=== PATIENT | male | born 1965 | race Caucasian/White ===

== ENCOUNTER 2024-09-05 05:10 | Inpatient (IN) | payer OTHER, SELFPAY ==
[2024-09-04 23:59] VITALS: BP 123/81
[2024-09-05] VITALS (45 sets, daily range): BP systolic 80–131; BP diastolic 54–89; BMI 29.2; BMI 30.4
--- NOTE | 2024-09-05 00:32 | ED.GENMED ---
History of Present Illness
General
Chief Complaint: Vomiting Blood
Source: patient
Exam Limitations: none
Time Seen by Provider: 09/05/24 00:23
History of Present Illness
History of Present Illness:
See MDM
Past History
Past History
ED Past Medical History: Other (Pulmonary embolism)
ED Past Surgical History: Appendectomy
Social History
Tobacco: Non-smoker
Alcohol: Occasional
Drug: None
Personal:
Living: with family
Employment: Employed
Phy Exam
Physical Exam
Physical Exam:
See MDM
Course
Orders/Labs/Results
Orders:
Orders
09/05/24 00:31
IV Insert/Care/Rem.- Treatment PRN
Pantoprazole 80 mg/100 ml Nss [Protonix] 80 mg in 100 ml IV NOW
Pantoprazole [Protonix IV] 80 mg IV NOW STA
09/05/24 00:32
CR Chest - 2 Views Urgent
Comment:
Reason For Exam: chest discomfort, bloody vomit
09/05/24 00:33
0.9% Sodium Chloride 1000 ml [Nss] 1,000 ml IV BOLUS
Morphine Sulfate 4 mg IV NOW STA
Ondansetron Injectable [Zofran] 4 mg IV NOW STA
09/05/24 00:34
Electrocardiogram (*1) Urgent
Reason for Study: Chest Pain
EKG- Treatment ONCE
09/05/24 00:53
Type+Screen Urgent
Complete Blood Count/With Diff Urgent
Comprehensive Metabolic Panel Urgent
PTT Urgent
Prothrombin Time Urgent
09/05/24 01:09
Consult Gastroenterology [GASTROINTESTINAL CONSULT] Urgent
Consulting Provider: Michelle Gonzalez
Was physician already notified: Yes
09/05/24 01:16
ABO2 Routine
BBK Wristband Number:
Associate notified that ABO2 has been ordered: [id number]
Date: 09/05/24
Time: 01:09
Horse Doctor ID: [id number]
09/05/24 01:47
HYDROmorphone [Dilaudid] 1 mg IV NOW STA
Abnormal Lab Results
09/05/24
00:53
WBC 14.8 H 10^3/uL
(4.8-10.8)
RBC 4.34 L 10^6/uL
(4.70-6.10)
Hct 38.1 L %
(39.0-52.0)
MCH 32.0 H pg
(27.0-31.0)
RDW 11.1 L %
(11.5-14.5)
Abs Immat Gran (auto) 0.1 H 10^3/uL
(0-0.05)
Absolute Neuts (auto) 12.8 H 10^3/uL
(1.4-6.5)
Absolute Lymphs (auto) 1.1 L 10^3/uL
(1.2-3.4)
Absolute Monos (auto) 0.8 H 10^3/uL
(0.1-0.6)
Neutrophils % 86.0 H %
(42.2-75.2)
Lymphocytes % 7.5 L %
(20.5-51.1)
BUN 26 H mg/dl
(9-20)
Glucose 154 H mg/dl
(70-99)
Total Bilirubin 1.7 H mg/dl
(0.2-1.3)
09/05/24 00:53
09/05/24 00:53
Vital Signs
Initial and Last Documented VS:
Initial Vital Signs
Temp Pulse Resp BP Pulse Ox
98.7 F 64 20 123/81 100
09/04/24 23:59 09/04/24 23:59 09/04/24 23:59 09/04/24 23:59 09/04/24 23:59
Last Documented Vital Signs
Temp Pulse Resp BP Pulse Ox
98.7 F 63 18 131/79 93
09/04/24 23:59 09/05/24 02:15 09/05/24 01:09 09/05/24 02:00 09/05/24 02:15
MDM/Problems Addressed
Differential Diagnosis Includes:
HPI and MDM Narrative:
59-year-old male presenting with bloody vomit. Patient was having a late night snack. He felt that it was stuck in his esophagus. Patient started gagging to get it out. Since then, patient has had intermittent bloody vomit. He states he no
longer thinks that the food is stuck but he still has pain in the middle chest. Patient denies being on blood thinners. He is tolerating secretions.
Patient and stated that he had a very large bloody vomit on arrival. Went into the room, patient had another episode of vomiting. Patient has about 200 cc of mostly blood in the vomit bag. states that this is actually less than the
prior.
Physical exam
General: Mildly uncomfortable
HEENT: protecting airway
Neck: appears supple
CV: No evidence of cyanosis
Resp: No accessory muscle use
Abd: Non-distended. Soft and nontender
Extremities: No deformities
Neuro: alert
Psych: Normal affect
Skin: Intact
Problems Addressed including Acute and Chronic Conditions affecting care:
1. Upper GI bleeding
Acuity: acute
Prognosis: unstable
Details: Given the active bleeding and family, GI made aware immediately. Started on PPI drip
Updates
1 AM Case discussed with GI. Plan is to perform EGD first thing in the morning since vitals are stable.
Differential Diagnosis (but not limited to): Laxmi-Garibay tear, peptic ulcer disease
Testing considered: CT chest
Drug therapy (if applicable): OTC meds, please see d/c instruction regarding Rx drugs
Amount and/or Complexity of Data Reviewed
Clinical info obtained from: Patient
External data reviewed: N/A
Labs I independently reviewed (but not limited to): Hemoglobin stable
Radiology: N/A
Pulse Ox: not hypoxic
EKG independently reviewed: Sinus bradycardia, left axis, no STEMI
Legal Records Clerk: Sinus bradycardia
Critical Care: The high probability of a clinically significant, sudden or life threatening deterioration of the gastrointestinal system(s) required my full and direct attention, intervention and personal management. The aggregate critical care time
was 35 minutes. This time is in addition to time spent performing reported procedures but includes the following:
[x] Data Review and interpretation
[x] Patient assessment and monitoring of vital signs
[x] Documentation
[x] Medication orders and management
Risk of Complication:
Social Determinants of health: Good social support
Discussed with other providers: Gastroenterology, hospitalist
Escalation of Care includes Admit/Obs: Given the significant amount of upper GI bleeding, will admit
Occasional wrong word or 'sound a like' substitutions may have occurred due to the inherent limitations of voice recognition software. Read the chart carefully and recognize, using context, where substitutions have occurred.
*Critical Care Note
Total Time (30-74mins, 75-104mins- exclusive of procedures): 35 min
ED Attending Note
-
Portions of this chart may have been created with voice recognition software.� Occasional wrong word or��sound alike� substitutions may have occurred due to the inherent limitations of voice recognition software.
Discharge Plan
Departure
Patient Disposition: Admit
Date of Disposition: 09/05/24
Time of Disposition: 02:38
Admit to: Telemetry
Presentation/result/management discussed w/ accepting MD/DO: Hospitalist
Discharge Problem:
UGIB (upper gastrointestinal bleed)
Prescriptions:
No Action
multivitamin 1 EACH tablet
1 ea PO DAILY
aspirin 81 MG tablet,chewable
81 mg PO DAILY
docosahexaenoic acid-epa 1 CAP capsule
1 cap PO DAILY
glucosamine neal 2KCl-chondroit [Glucosamine Sulf-Chondroitin] 1 EACH capsule
1 cap PO DAILY
Vitamin C
1 cap PO DAILY
acetaminophen 325 MG tablet
650 mg PO Q4HPRN PRN (Reason: mild pain) Qty: 1 0RF
ibuprofen 200 MG tablet
400 - 600 mg PO Q6HPRN PRN (Reason: moderate pain) Qty: 1 0RF
oxycodone 5 MG tablet
5 mg PO Q4HPRN PRN (Reason: breakthrough/severe pain) Qty: 15 0RF
rivaroxaban [Xarelto] 20 MG tablet
20 mg PO QPM Qty: 30 0RF
Rx Instructions:
Do NOT start until evening of 02/06/2021
Referrals:
Dav Mancilla, DO [Family Provider, Internal Medicine]
Interventions
Interventions:
*Risk Screen - Suicide Last Done: 09/04/24 23:59
*Neglect/Abuse Screening Last Done: 09/04/24 23:59
LF-Kaumbj-Wxrzpytvmy Assessment Last Done: 09/05/24 01:09
ED- Cardiac Assessment Last Done: 09/05/24 01:09
ED- Pulmonary Assessment Last Done: 09/05/24 01:09
Discharge Date and Time
Print Language: MALTESE
[2024-09-05 01:01] LABS: % Basophils 0.3 % (0-2); % Eosinophils 0.4 % (0-6); % Immature Granulocytes 0.4 % (0-0.5); % Lymphocytes 7.5 % (20.5-51.1); % Monocytes 5.4 % (1.7-9.3); Absolute Basophils 0.1 10^3/uL (0-0.2); Absolute Eosinophils 0.1 10^3/uL (0-0.7); Absolute Immature Granulocytes 0.1 10^3/uL (0-0.05); Absolute Lymphocytes 1.1 10^3/uL (1.2-3.4); Absolute Monocytes 0.8 10^3/uL (0.1-0.6); Absolute Neutrophils 12.8 10^3/uL (1.4-6.5); Hematocrit 38.1 % (39.0-52.0); Hemoglobin 13.9 g/dL (13.0-18.0); Mean Corp Hgb Conc. 36.5 g/dL (33.0-37.0); Mean Corpuscular Volume 87.8 fL (80.0-94.0); Mean Platelet Volume 9.3 fL (7.4-10.4); Nucleated Red Blood Cells % 0 % (-); Platelet Count 179 10^3/uL (130-400); Red Blood Cell Count 4.34 10^6/uL (4.70-6.10); Red Cell Dist. Width 11.1 % (11.5-14.5); White Blood Cell Count 14.8 10^3/uL (4.8-10.8)
[2024-09-05] MEDS: MORPHINE SULFATE 4 MG IV (01:01)
[2024-09-05] MEDS: NSS 1000 IV (01:01)
[2024-09-05] MEDS: PROTONIX IV 80 MG IV (01:02)
[2024-09-05] MEDS: ZOFRAN 4 MG IV (01:02)
[2024-09-05] MEDS: PROTONIX 100 IV ×3 (01:05→20:32)
[2024-09-05 01:17] LABS: APTT 27.2 Sec (23.4-35.0); INR 1.09; PT 14.4 Sec (11.4-14.6)
[2024-09-05 01:18] LABS: ALT (SGPT) 45 U/L (0-50); AST (SGOT) 39 U/L (17-59); Albumin 4.5 g/dl (3.5-5.0); Alkaline Phosphatase 55 U/L (38-126); Blood Urea Nitrogen 26 mg/dl (9-20); Calcium 9.2 mg/dl (8.4-10.2); Carbon Dioxide 28 mmol/L (22-30); Chloride 105 mmol/L (98-107); Estimated Creatinine Clearance 75 ml/min; Glucose 154 mg/dl (70-99); Potassium 3.8 mmol/L (3.5-5.1); Sodium 139 mmol/L (135-145); Total Bilirubin 1.7 mg/dl (0.2-1.3); Total Protein 6.6 g/dl (6.3-8.2); eGFR > 60.00
[2024-09-05] MEDS: DILAUDID 1 MG IV (01:52)
--- NOTE | 2024-09-05 04:58 | HPS.HSE ---
Family Physician
-
Family Physician: Dav Mancilla
Chief Complaint
-
Hematemesis
History of Present Illness
Patient is a 59y M with PMH significant for ASCVD and prior DVT / PE who presents to ED complaining of hematemesis. Patient states that he had a cardiac CT done earlier today. He felt well after this. He had a snack of rice / protein shake
this afternoon and felt that it 'got stuck'. He states that he coughed / choked a bit and then threw up some of the contents. He had a few episodes of retching / emesis at that time. He felt OK after this as well. He went to the movies with
family and began to feel lightheaded and diaphoretic. He went to the bathroom and had emesis of a large amount of bright red blood x 2 episodes.
Patient returned home, but had a 3rd episode of hematemesis at home.
He then presented to the ED for further evaluation. Patient had another episode en route to the ED.
He had a single episode here amounting to 200cc of bright red blood. He has not had any emesis since that time (following Zofran).
Medical History
Past Medical History
Past Medical History: Reports Other
Additional Past Medical History:
Coronary Disease (dx by Cardiac CT)
DVT / PE (multiple episodes - all post-surgical)
Past Surgical History: Reports Other
Additional Past Surgical History:
Right Knee Arthroscopy
Appendectomy
Cholecystectomy
Social History
Tobacco: Non-smoker
Alcohol: None
Drug: None
Family History
Family History: Not pertinent
Allergies / Home Medications
Allergies reflects when Allergies were last updated in [employer].
Home Medications with original date entered in [employer]
Allergy/Medication List:
Allergies
Allergy/AdvReac Type Severity Reaction Status Date / Time
No Known Allergies Allergy Verified 09/04/24 23:59
Home Medications
aspirin 81 mg chewable tablet 81 mg PO DAILY 01/21/21
atorvastatin 40 mg tablet 40 mg PO HS 09/05/24
coenzyme Q10 100 mg capsule (CoQ-10) 100 mg PO DAILY 09/05/24
omega 6-qak-bwm-fish oil 1,000 mg (120 mg-180 mg) capsule (Fish Oil) 1 cap PO BID 09/05/24
psyllium husk 3.4 gram/5.4 gram oral powder (Metamucil) 1 tbsp PO DAILY 09/05/24
Review of Systems
-
History Source: Patient
A 12 point ROS was completed and negative except as noted: Yes
Constitutional: Reports Fatigue; Denies Fever or Chills
EENT: Denies Sore Throat
Respiratory: Denies Cough or Trouble Breathing
Cardiac: Reports Chest Pain
Abdomen/GI: Reports Nausea and Vomiting (bloody emesis.); Denies Abdominal Pain
: Denies Dysuria or Frequency
Musculoskeletal: Denies Joint Pain or Edema
Neurological: Reports Dizzy; Denies Headache
Psych: Denies Depression or Anxiety
Physical Exam
Vital Signs
Vital Signs
Temp Pulse Resp BP Pulse Ox
98.7 F 64 16 116/72 97
09/04/24 23:59 09/05/24 04:25 09/05/24 04:25 09/05/24 04:25 09/05/24 04:25
Physical Exam
General: Other (59y M in no acute distress.)
HEENT: Moist mucous membranes and PERRLA
Respiratory: Clear; No Wheezes, Rales or Rhonchi
Cardiac: S1/S2 and Regular Rhythm; No Murmur
GI: Soft, Non Tender, Non Distended and Normal Bowel Sounds
Musculoskeletal: No Clubbing and No Cyanosis
Neuro: AO x 3
Laboratory Results
-
09/05/24 00:53
09/05/24 00:53
Laboratory Results
PT 14.4 Sec (11.4-14.6) 09/05/24 00:53
INR 1.09 09/05/24 00:53
APTT 27.2 Sec (23.4-35.0) 09/05/24 00:53
Total Bilirubin 1.7 mg/dl (0.2-1.3) H 09/05/24 00:53
AST 39 U/L (17-59) 09/05/24 00:53
ALT 45 U/L (0-50) 09/05/24 00:53
Alkaline Phosphatase 55 U/L (38-126) 09/05/24 00:53
Impression/Plan
-
A/P: Patient is a 59y M with PMH significant for CAD and VTE who presents to ED complaining of hematemesis.
Hematemesis
- Admit for further evaluation and treatment.
- Symptoms preceded by coughing / choking episode and few episodes of emesis at that time.
- ? Laxmi Garibay / mucosal injury due to choking.
- Continue supportive care with IV PPI infusion, IVFs, antiemetics and pain control.
- GI consulted for probable endoscopic examination.
- Follow H&H and transfuse if needed.
- Follow for any further episodes of hematemesis.
ASCVD
- Diagnosed by cardiac CT. No prior TN, stents, etc.
- Hold meds including ASA acutely.
History of DVT / PE
DVT Prophylaxis
- Previously on Xarelto - but stopped this some time ago and now on ASA alone.
- SCDs for prophylaxis for now.
Code Status: Full
[2024-09-05] MEDS: LR 1000 IV ×4 (05:41→23:45)
[2024-09-05 06:07] LABS: Hematocrit 34.2 % (39.0-52.0); Hemoglobin 12.6 g/dL (13.0-18.0)
[2024-09-05 06:26] LABS: Blood Urea Nitrogen 23 mg/dl (9-20); Calcium 8.6 mg/dl (8.4-10.2); Carbon Dioxide 24 mmol/L (22-30); Chloride 108 mmol/L (98-107); Estimated Creatinine Clearance 92 ml/min; Glucose 140 mg/dl (70-99); Potassium 4.7 mmol/L (3.5-5.1); Sodium 137 mmol/L (135-145); eGFR > 60.00
--- NOTE | 2024-09-05 06:47 | CON.GI ---
Addendum entered and electronically signed by Samantha Dougherty MD 09/05/24 09:31:
I saw and examined the patient.
The BANKRUPTCY PARALEGAL's note was reviewed and I agree with the note.
Comment: This is a 59-year-old male with past medical history as listed below who has been taking aspirin 81 mg twice daily who also has been having intermittent episodes of dysphagia to some solids for the past 2 to 3 years yesterday had eaten
salmon and rice and after he ate the rice he felt that it was stuck and had violent vomiting few episodes after that he vomited a large amount of blood and came into the emergency room and had another episode of suzanne hematemesis about 200 mL in the
ER. Hemoglobin on admission though was stable. After those 4 episodes he has not had any further episodes of vomiting or hematemesis. He currently denies any chest pain or abdominal pain. He had his last colonoscopy in 2013 which showed
diverticulosis never had an endoscopy before. He also denies any symptoms of acid reflux.
Assessment and plan dysphagia with food bolus impaction yesterday after he ate dinner felt that rice was stuck and then had multiple episodes of vomiting violently and then had hematemesis most likely has esophageal tear/Laxmi-Garibay tear.
Currently denies any abdominal pain no chest pain. Hemoglobin also remained stable. Will schedule him for urgent endoscopy. Continue Protonix drip. He also has been having intermittent episodes of dysphagia prior to this which could be related
to possible Schatzki's ring less likely peptic stricture since he has no symptoms of reflux less likely neoplasm. Will need an eventual repeat endoscopy for dilatation if he does have evidence of a ring or stricture. hold ASA.
Original Note:
Consultation
-
Date/Time Consultation Requested: 09/05/240
Date/Time Consultation Performed: 09/05/24 0645
Requesting Provider: Sam Ribera DO
Performing Provider: ASHIA Ambrocio, Samantha Dougherty MD
Reason for Consultation: GI bleed
Medical History
Chief Complaint / HPI
Chief Complaint: vomiting blood
History of Present Illness:
Pt is a 59yo with hx ASCVD with medical management, prior DVT/PE on ASA not on anticoagulation, appe, cortney, knee surgery with onset of dysphagia with retching then hematemesis and vomited about 200ml of suzanne blood in ER. Labs on admission with
WBC 14.8, hbg 13.9, Platelets 179 with normal INR.
In review with patient noted with dysphagia with solids over last few months. This episode was with rice after he completed follow up cardiac MRI for routine health testing. He admits to No hx EGD. Pt denies odynophagia, Wt loss, GERD,
abdominal pain, diarrhea, constipation, blood or black in stools. Hx colonoscopy 2013 with diverticulosis and due for repeat now.
Past Medical History
Past Medical History: Other (PE/DVT, ASCVD, diverticulosis )
Past Surgical History: Appendectomy, Cholecystectomy, Orthopedic (knee arthroscopy ) and Tonsilectomy
Social History
Tobacco: Non-Smoker
Alcohol: None
Drug: None
Personal:
Living: With Family
Employment: Employed
Family History
Family History: Other (daughter, niece and sister with IBS)
Allergies / Home Medications
Allergy/AdvReac Type Severity Reaction Status Date / Time
No Known Allergies Allergy Verified 09/04/24 23:59
�Medication �Instructions �Recorded
aspirin 81 mg chewable tablet 81 mg PO DAILY 01/21/21
atorvastatin 40 mg tablet 40 mg PO HS 09/05/24
coenzyme Q10 100 mg capsule 100 mg PO DAILY 09/05/24
(CoQ-10)
omega 2-cib-iaa-fish oil 1,000 mg 1 cap PO BID 09/05/24
(120 mg-180 mg) capsule (Fish Oil)
psyllium husk 3.4 gram/5.4 gram 1 tbsp PO DAILY 09/05/24
oral powder (Metamucil)
Review of Systems
-
History Source: Patient
Constitutional: Reports No Symptoms
EENT: Reports No Symptoms
Respiratory: Reports No Symptoms
Cardiac: Reports No Symptoms
Abdomen/GI: Reports Nausea, Vomiting (with hematemesis ) and Other (dysphagia with solids )
: Reports No Symptoms
Musculoskeletal: Reports No Symptoms
Skin: Reports No Symptoms
Neurological: Reports No Symptoms
Endocrine: Reports No Symptoms
Hematologic/Lymphatic: Reports Bleeding
Vital Signs
Temp Pulse Resp BP Pulse Ox
98.3 F 64 16 112/68 97
09/05/24 06:39 09/05/24 06:01 09/05/24 06:01 09/05/24 06:01 09/05/24 06:01
Physical Exam
Exam
General: Well Developed, Well Nourished and No Apparent Distress
HEENT: Normocephalic and Anicteric
Respiratory: Clear
Cardiac: Regular Rhythm
GI: Soft, Non Tender and Non Distended
Musculoskeletal: No Clubbing and No Cyanosis
Skin: Warm and Dry
Neuro: Awake, Alert and AO x 3
Psych: Calm
Results
WBC 14.8 10^3/uL (4.8-10.8) H 09/05/24 00:53
Hgb 12.6 g/dL (13.0-18.0) L 09/05/24 05:43
Hct 34.2 % (39.0-52.0) L 09/05/24 05:43
MCV 87.8 fL (80.0-94.0) 09/05/24 00:53
Plt Count 179 10^3/uL (130-400) 09/05/24 00:53
Absolute Neuts (auto) 12.8 10^3/uL (1.4-6.5) H 09/05/24 00:53
PT 14.4 Sec (11.4-14.6) 09/05/24 00:53
INR 1.09 09/05/24 00:53
APTT 27.2 Sec (23.4-35.0) 09/05/24 00:53
Sodium 137 mmol/L (135-145) 09/05/24 05:43
Potassium 4.7 mmol/L (3.5-5.1) 09/05/24 05:43
Chloride 108 mmol/L (98-107) H 09/05/24 05:43
Carbon Dioxide 24 mmol/L (22-30) 09/05/24 05:43
BUN 23 mg/dl (9-20) H 09/05/24 05:43
Creatinine 0.9 mg/dL (0.7-1.3) 09/05/24 05:43
Calcium 8.6 mg/dl (8.4-10.2) 09/05/24 05:43
Total Bilirubin 1.7 mg/dl (0.2-1.3) H 09/05/24 00:53
AST 39 U/L (17-59) 09/05/24 00:53
ALT 45 U/L (0-50) 09/05/24 00:53
Alkaline Phosphatase 55 U/L (38-126) 09/05/24 00:53
Diagnostic Image Results:
Prior GI Procedures:
EGD: none
Colonoscopy: 2013 good prep to cecum diverticulosis repeat 10 years
Assessment / Plan
-
Pt is a 59yo with hx ASCVD with medical management, prior DVT/PE on ASA not on anticoagulation, appe, cortney, knee surgery with onset of dysphagia after eating rice with retching then hematemesis and vomited about 200ml of suzanne blood in ER. Pt
states hx dysphagia intermittently last few months. Labs on admission with WBC 14.8, hbg 13.9, Platelets 179 with normal INR. No hx ETOH use.
-dysphagia last few months
-hematemesis after retching
-mild leukocytosis on admission
-ASCVD on daily ASA
other med problems:
-diverticulosis
-DVT/PE
-appe
-cortney
knee surgery
PLAN:
etiology of hematemesis related to MW tear vs other
dsyphagia related to stricture, ring, esophageal dysmotility vs other
plan for EGD today
currently on PPI gtt - t/c transition after EGD completed
trend hbg
NPO - advancement pending EGD results
will need follow up for colonoscopy as last 2013
-
-
Thank you for consultation and allowing me to participate in the patient's care. Please call the roofing subcontractor GI physician during the after hours with any questions or concerns.
--- NOTE | 2024-09-05 07:15 | PTCARENOTE ---
Patient AOx3. NSR with first degree on monitor. VSS. IVF running per order. Assist x1 when OOB. Call tate within reach, bed in lowest position, and bed of wheels locked.
--- NOTE | 2024-09-05 07:16 | PTCARENOTE ---
Admitted pt to floor. aaox3, pleasant. C/o pain in esophagus. No episodes of BRB emesis. VSS. NSR. Walking to BR, no dizziness. Will monitor.
--- NOTE | 2024-09-05 07:43 | PTCARENOTE ---
Patient transferred to GI lab via stretcher by patient transport. Verbal report given to GI casting house laborer. JANICE. IVF infusing per order. Care ongoing.
[2024-09-05 09:30] LABS: Glucose - Point of Care 151 mg/dl (70-99)
--- NOTE | 2024-09-05 09:30 | PTCARENOTE ---
Of note- any vital signs downloaded prior to 919 are from the previous unit
--- NOTE | 2024-09-05 09:33 | W.PN.HOSP.TC ---
Today's Communication/Plan
-
PPI Gtt
Vent
Assessment / Plan
Assessment / Plan
59-year-old male with upper GI bleed-vomiting blood. He ate rice and protein shake he felt it got stuck if you episodes of retching. Later on felt lightheaded and diaphoretic and had 3 episodes of hematemesis. Patient went for endoscopy where he
was found to have a 6 cm mucosal tear and bleeding. He was treated with bipolar cautery hemostatic spray. Patient was intubated for airway protection
EKG-sinus bradycardia with first degree block left axis deviation, incomplete right bundle branch block
Seen and evaluated the patient in the ICU
Patient intubated and sedated with a bolus of propofol
Cardiovascular system S1-S2 appreciated
Chest anteriorly clear to auscultation
Abdomen soft and nontender bowel sounds appreciated
No pedal edema
# Hematemesis -upper GI bleed
Probably exacerbated by aspirin
Dysphagia for the past few months
EGD 09/06/2023-large linear sick centimeter mucosal tear bleeding and with a large adherent clot which was removed. This was injected and treated with bipolar cautery and hemostatic spray. Also had hiatal hernia and low-grade narrowing of the
Schatzki's ring. Blood clots in the gastric fundus.
Patient was intubated for airway protection and to avoid nausea and retching to help heal the esophageal tear. No concern for aspiration per discussion with anesthesia
Continue PPI drip
N.p.o. with IV fluids
Follow hemoglobin
GI consulted and following as above
# Intubated for airway protection-ventilator management per broaching machine operator
# Mild leukocytosis-likely reactive. Follow
# ASCVD diagnosed by cardiac CT. No history of [place]. Hold aspirin and statin
# Hyperlipidemia-hold statin
# History of DVT and PE-or postsurgical. Was on Xarelto in the past
# Diverticulosis
# DVT prophylaxis-SCDs now and start Lovenox prophylaxis as soon as possible and cleared by GI
# Full code
Discussed with ICU team at bedside
Total Critical Care Time 32 minutes. I was immediately available to the patient and staff. I personally examined, reviewed labs, diagnostic images/reports, interpretations, treatment plans, discussed patient care with other providers , entered
orders as appropriate and documented the medical record.
Left message for
Part of this note was created using voice recognition system. Occasional wrong word or��sound alike� substitutions may have inadvertently occurred due to the inherent limitations of voice recognition software. If noted kindly bring it to my
attention for correction.
Anticipated Discharge: > 48 hours
Subjective/Interval History
-
Date of Service: September 05, 2024
Objective Data
-
Labs:
Laboratory Results
09/05/24 09/05/24 09/05/24
00:53 05:43 11:22
WBC 14.8 H
Hgb 13.9 12.6 L Pending
Hct 38.1 L 34.2 L Pending
Plt Count 179
PT 14.4
INR 1.09
APTT 27.2
Sodium 139 137
Potassium 3.8 4.7
Chloride 105 108 H
Carbon Dioxide 28 24
BUN 26 H 23 H
Creatinine 1.1 0.9
Glucose 154 H 140 H
Calcium 9.2 8.6
Total Bilirubin 1.7 H
AST 39
ALT 45
Alkaline Phosphatase 55
09/05/24 09/05/24
17:22 23:22
WBC
Hgb Pending Pending
Hct Pending Pending
Plt Count
PT
INR
APTT
Sodium
Potassium
Chloride
Carbon Dioxide
BUN
Creatinine
Glucose
Calcium
Total Bilirubin
AST
ALT
Alkaline Phosphatase
Vital Signs:
Vital Signs
Temp Pulse Resp BP Pulse Ox
99.4 F 64 16 112/68 97
09/05/24 09:32 09/05/24 06:01 09/05/24 06:01 09/05/24 06:01 09/05/24 06:01
[2024-09-05] MEDS: DIPRIVAN 100 IV ×3 (09:49→23:26)
[2024-09-05] MEDS: SUBLIMAZE 50 MCG IV ×5 (10:20→21:42)
--- NOTE | 2024-09-05 10:30 | PTCARENOTE ---
Rec'd pt from GI lab at 0925 via stretcher with nursing and INSULATION BLANKET MAKER with pt. Rec'd pt sedated and intubated. Once some of the sedation for the procedure wore off pt more wakeful-nodding head and following some basic commands. MAE. DE JESUS at 2mm. Nods
head no to having pain. Pt placed on Diprivan at 0950 at 15 mcg to keep restful while intubated. Skin is pink wm and dry. Respirs are intact on the vent. #8 Ett retaped at the 24 cm k[place] center of the mouth. CXRay obtained. Vent settings AC 16, tv
500, peep 5 Fio2 50%- sats are 97%. Mostly staying controlled at 16 but will occasionally take a few breaths above. Denies shortness of breath. BS are overall clear. Coughing an intermittent moist cough for clear sl bloody tinged secretions.
Medicated at 1020 with Fentanyl 50 mcg for some coughing. Monitor SR with 1st av block MA . 25-.26. + pulses. No edema. VS as documented. Pt initally hypotensive in the 80's syst. when first arrived to the ICU but given Hong by Anesthesia and
currently BP has improved and is tolerating the Propophol. Abd is sl distended and round with hypoactive BS. Does have some burping. Nods head no to having nausea. Has not voided yet. #20 protective placed R hand and Propophol currently at 15 mcg
via R hand IV site. IV Protonix infusing via L AC IV and LR infusing at 150 ml/hr via R AC. All sites wnl. Complete CHG bath given. Mouth care given. Repositioned.
[2024-09-05 10:33] LABS: B.E. 1.5 mmol/L; HCO3 26.6 mmol/L (21-28); O2 Saturation % 99.8 % (94-98); PCO2 43 mmHg (35-48); PO2 127 mmHg (83-108)
--- NOTE | 2024-09-05 10:42 | PTCARENOTE ---
GI laborer [employer] called and informed this RN that patient is intubated post endoscopy and will be transferred to ICU. Susy CARPET TECHNICIAN stated that she received report from GI laborer [employer]. Patient belongings transferred to ICU.
[2024-09-05 11:47] LABS: Hematocrit 34.2 % (39.0-52.0); Hemoglobin 12.3 g/dL (13.0-18.0)
--- NOTE | 2024-09-05 12:40 | PTCARENOTE ---
Remains resting on 20 mcg of Propophol. On that dose pt seems comfortable. Dozing unless disturbed. Denies pain and did not want anything for pain. Giving the thumbs up that he is comfortable. Skin is wm and dry. Tolerating 40% Fio2 with sats of
98%. Occasional cough that is not sustained. Suctioned for small amt of clear sl bloody tinged secretions. VS as documented. Abd is round and soft. Passing large amts of flatus. Has denied the need to void when asked. Bladder scanned at 1230 for 529
mls of urine. IV's continue to infuse as ordered. Pts at the bedside and both pt and updated.
--- NOTE | 2024-09-05 13:45 | PTCARENOTE ---
Pt is overall restful but easily wakeful. Writing notes and gesturing to communicate. Medicated with Fentanyl 50 mcg IV in anticipation of st. cathing pt as he could not void. However just prior to st cath pt was able to void 300 mls of urine.
-mostly in the urinal but some on the pad. #30 condom cath placed on pt as he is restrained. Rebladder scanned and post void residual is 578- pt wants to wait to see if he can void more. Has been cooperative. Denies discomfort. at the bedside.
Passing flatus.
--- NOTE | 2024-09-05 14:00 | CON.INTV ---
Consultation
Consultation Request
Date/Time Consultation Requested: 09/05/2024
Date/Time Consultation Performed: 09/05/2024
Requesting Provider: Breana De La Cruz
Performing Provider: Tess Coello
Reason for Consultation: GI Bleed
Medical History
-
Chief Complaint: Hematemesis
History of Present Illness:
Patient is currently intubated and sedated, unable to provide any history. Information mostly obtained from review of records and discussion with other healthcare providers. Reportedly patient is a 59-year-old gentleman with history of DVT and PE
who presents through the emergency room with hematemesis. Patient reportedly had some rice and protein shake and felt like as if it was stuck and he subsequently had cough and threw up some of the contents. He had additional episodes of retching
and emesis following that. A while later patient felt lightheaded as well as diaphoretic. He subsequently had a large amount of bright red blood x 2 episode. He had another episode once back at home and then decided to present to the emergency
room. In view of multiple episodes, he was admitted to the hospital and had an upper endoscopy performed today. Post endoscopy he arrives to ICU intubated, mechanically ventilated and sedated. Track Template Maker consultation was requested for further
input.
Past Medical History
Past Medical History: Reports Other
Additional Past Medical History:
Coronary Disease (dx by Cardiac CT)
DVT / PE (multiple episodes - all post-surgical)
Past Surgical History: Reports Other
Additional Past Surgical History:
Right Knee Arthroscopy
Appendectomy
Cholecystectomy
Social History
Tobacco: Non-smoker
Alcohol: None
Drug: None
Family History
Family History: Not pertinent
Allergies / Home Medications
Allergies / Home Medications
Allergies
Allergy/AdvReac Type Severity Reaction Status Date / Time
No Known Allergies Allergy Verified 09/04/24 23:59
Home Medications
�Medication �Instructions �Recorded �Confirmed �Last Taken �Type
aspirin 81 mg chewable tablet 81 mg PO DAILY 01/21/21 09/05/24 01/30/21 History
atorvastatin 40 mg tablet 40 mg PO HS 09/05/24 09/05/24 Unknown History
coenzyme Q10 100 mg capsule 100 mg PO DAILY 09/05/24 09/05/24 Unknown History
(CoQ-10)
omega 7-msz-crh-fish oil 1,000 mg 1 cap PO BID 09/05/24 09/05/24 Unknown History
(120 mg-180 mg) capsule (Fish Oil)
psyllium husk 3.4 gram/5.4 gram 1 tbsp PO DAILY 09/05/24 09/05/24 Unknown History
oral powder (Metamucil)
Review of Systems
-
Unable to Obtain full review of systems at this time due to: Patient Intubation
Vitals / Labs / Diagnostic Testing
Vital Signs
Temp Pulse Resp BP Pulse Ox
97.4 F 82 19 90/69 98
09/05/24 12:21 09/05/24 09:46 09/05/24 09:46 09/05/24 09:45 09/05/24 12:00
Lab Data
09/05/24 05:43
Laboratory Results
09/05/24 09/05/24
00:53 10:16
PT 14.4
INR 1.09
APTT 27.2
pH 7.40
pCO2 43
pO2 127 H
HCO3 26.6
O2 Delivery Level
Diagnostic Testing:
Physical Exam
-
HEENT: Normocephalic
Cardiovascular: S1/S2
Respiratory: Clear and Non-Labored Respirations
GI: Soft and Non Distended
Neurology: Other (Sedated)
Skin: Warm
General: Comfortable
Assessment
-
#1. Upper GI bleed with esophageal tear.
- Suspect related to forceful retching, vomiting after episode of flood sticking in esophagus/chocking
- s/p EGD, large tear noted, s.p bipolar cautery
- Start IV Unasyn, CT Chest with contrast to evaluate for any mediastinal contamination/collection, ?Boerhaave syndrome
- Strict NPO
- IV PPI infusion
- GI Service on case
#2. Acute respiratory failure, intubated for airway protection with GI bleed and esophageal tear
- ABG 7.4, 43, 127. Currently on volume assist-control 500/16/50%/5. Will switch to 40% FiO2. CXR reviewed.
- Sedation with Propofol/Fentanyl. NPO. head end raised
- f/u CT Chest, if unremarkable and patient stable over next 24 hrs, will initiate SAT/SBT on 09/06
#3. h/o DVT-PE.
- Reportedly mostly after surgeries
- Will get additional information from patient on ce extubated
SCDs for DVT prophylaxis.
Critical Care time 65 mins -- The patient is admitted for acute critical illness for the treatment of vital organ failure and/or prevention of further life-threatening conditions. Total care includes time spent in review of history, physical exam,
medications, hemodynamic/ventilator parameters, laboratory data, imaging and discussion with house staff, pharmacy, respiratory therapy, chief counsel, and nursing.
Data:
CXR 09/2024: Interval insertion of endotracheal tube, with tip 5 cm above the nellie.
Mild parenchymal opacity within the medial left lower lung, which is likely atelectasis.
EGD 09/05/2024: Large linear 6 cm mucosal tear bleeding with large adherent clot which was removed. Treated with bipolar cautery. Small hiatal hernia.
--- NOTE | 2024-09-05 14:33 | CM ---
Patient intubated. Initial assessment completed with . Patient and live in a 2 story plus basement home with 3 steps to enter, B/B on 2nd and 1/2 bath on . 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
no in-home services. Does have HC-POA. No service. and extended family are support system. PCP is Dr. Dav Bass and Pharmacy is [facility]. Discharge POC: TBD. Anticipate home with no needs.
[2024-09-05 15:20] LABS: Triglycerides 55 mg/dl (10-149)
--- NOTE | 2024-09-05 15:40 | PTCARENOTE ---
Taken via bed with resp therapy to CT Scan for CT of the chest. Pt remains awake writing notes.
[2024-09-05 15:41] LABS: Magnesium 1.8 mg/dl (1.6-2.3); Phosphorus 2.7 mg/dl (2.5-4.5)
[2024-09-05] MEDS: SUBLIMAZE 100 IV (16:27)
[2024-09-05] MEDS: UNASYN IV ×2 (16:28→21:47)
--- NOTE | 2024-09-05 16:40 | PTCARENOTE ---
Returned from CT of the chest. Pt tolerated procedure well. Reassessed. Denies pain but did admit that he wouldn't mind being sedated so he could rest as the ETT can get uncomfortable (but wants to be awake enough to be able to interact with his
family and write notes. Propophol gtt remains at 20 mcg and at 1630 remedicated with Fentanyl 50 mcg IV and Fentanyl gtt started at 25 mcg via R hand IV site. BS care sl coarse. Suctioned for clear sl bloody tinged secretions. Sats have been 96-97%.
Vent 40% AC 16, tv 500, peep 5. VS as documented. Continues to pass flatus. Pt was able to void 600 mls of urine after returning from CT scan via condom cath. Bladder scanned for additional 243 mls. Turned and repositioned. Call tate in reach. Has
been writing notes frequently and has been cooperative. Bilat soft wrist restraints on just as a reminder to not reach up toward ETT. Pts at the bedside.
--- NOTE | 2024-09-05 18:20 | PTCARENOTE ---
Has been dozing since earlier Fentanyl bolus and gtt. Awakens to verbal stimuli and nods, gestures and writes notes that he is comfortable. Family at the bedside. Pts brother who is a physician updated. VS as documented. No other changes.
[2024-09-05 19:31] LABS: Hematocrit 32.6 % (39.0-52.0); Hemoglobin 11.8 g/dL (13.0-18.0)
--- NOTE | 2024-09-05 22:22 | PTCARENOTE ---
Assumed care of pt at 1900. Received pt intubated, #8.0 ETT 24cm at lip, AC 16/500/40/5. Received pt on Propofol at 20mcg/kg/min, Fentanyl at 25mcg/hr, IVF and protonix drip. See med titration flowsheets on worklist for Propofol and Fentanyl
titration details. Pt is awake and alert, calm, able to write and make needs known, interacts appropriately with others. Denies pain. SR 60s on monitor with 1st deg AVB. See nursing shift assessment flowsheet for full physical assessment details.
Restraints removed. Call tate and phone within reach.
[2024-09-06] VITALS (21 sets, daily range): BP systolic 90–146; BP diastolic 56–88; BMI 30.7
--- NOTE | 2024-09-06 02:06 | PTCARENOTE ---
Midnight assessment unchanged. Remains on same drips. Pt has been sleeping between care but easily awakens to voice or light touch. SB 50s on monitor.
[2024-09-06 04:01] LABS: B.E. 2.5 mmol/L; HCO3 26.2 mmol/L (21-28); O2 Saturation % 99.5 % (94-98); PCO2 36 mmHg (35-48); PO2 117 mmHg (83-108); pH 7.47 (7.35-7.45)
[2024-09-06] MEDS: UNASYN IV ×4 (04:27→22:49)
[2024-09-06 04:38] LABS: Blood Urea Nitrogen 20 mg/dl (9-20); Calcium 8.4 mg/dl (8.4-10.2); Carbon Dioxide 24 mmol/L (22-30); Chloride 110 mmol/L (98-107); Estimated Creatinine Clearance 93 ml/min; Glucose 121 mg/dl (70-99); Potassium 4.4 mmol/L (3.5-5.1); Sodium 138 mmol/L (135-145); eGFR > 60.00
[2024-09-06 04:55] LABS: Hematocrit 29.1 % (39.0-52.0); Hemoglobin 10.5 g/dL (13.0-18.0); Mean Corp Hgb Conc. 36.1 g/dL (33.0-37.0); Mean Corpuscular Hgb 32.5 pg (27.0-31.0); Mean Corpuscular Volume 90.1 fL (80.0-94.0); Mean Platelet Volume 9.5 fL (7.4-10.4); Platelet Count 126 10^3/uL (130-400); Red Blood Cell Count 3.23 10^6/uL (4.70-6.10); Red Cell Dist. Width 11.6 % (11.5-14.5); White Blood Cell Count 11.7 10^3/uL (4.8-10.8)
[2024-09-06] MEDS: DIPRIVAN 100 IV (05:01)
[2024-09-06] MEDS: PROTONIX 100 IV ×2 (05:56→16:34)
[2024-09-06] MEDS: LR 1000 IV ×2 (05:56→14:52)
--- NOTE | 2024-09-06 07:29 | PTCARENOTE ---
0400 assessment unchanged. Pt remains on same drips, same vent settings. Able to have a full conversation via writing back and forth. Able to turn in bed with minimal assistance, CHG cloth bath done and linens changed. Pt has been SB down to the 40s
at times while sleeping, 50s-60s while awake.
--- NOTE | 2024-09-06 08:17 | RESPNOTE ---
pt extubated at 0810 without any difficulties, pt is on 2 lpm 02 with 02 sats of 97%
--- NOTE | 2024-09-06 08:30 | PTCARENOTE ---
pt on ventilator support and on fentanyl and propofol for sedation , pt alert and oriented on vent communication with written notes , comfortable , NRS - SB on nuclear monitoring technician BP normotensive , labs noted, he was seen by legal transcriptionist in the early am
and patient was weaned on SBT and tolerated well then extubated by 0810 , he originally was on 2L NC with sats of 98% then transitioned to room air , he was seen by GI and ok for clear liquids which he tolerated well and plans for x 1more day of IV
Protonix , he is encouraged to us IS with TV of 2500 , labs noted with a hemoglobin down to 10.5 since admission
--- NOTE | 2024-09-06 09:02 | W.PN.GI.CBS2 ---
Today's Communication / Plan
-
CLD
Carafate
Assessment / Plan
-
Pt is a 59yo with hx ASCVD with medical management, prior DVT/PE on ASA not on anticoagulation, appe, cortney, knee surgery with onset of dysphagia after eating rice with retching then hematemesis and vomited about 200ml of suzanne blood in ER. Pt
states hx dysphagia intermittently last few months. Labs on admission with WBC 14.8, hbg 13.9, Platelets 179 with normal INR. No hx ETOH use.
-dysphagia last few months
-hematemesis after retching
-mild leukocytosis on admission
-ASCVD on daily ASA
other med problems:
-diverticulosis
-DVT/PE
-appe
-cortney
knee surgery
PLAN:
Status post EGD 09/05/2024 which showed a large esophageal mucosal tear with active bleeding and a large adherent clot which was removed and status post injection of epi bipolar cautery and Hemospray and hemostasis was achieved
No further bleeding
Continue Protonix drip could probably DC tomorrow if stable and no further bleeding
Will start him on clear liquid diet today
Given large tear will need to rule out EOE with follow-up endoscopy and also may need dilatation of the Schatzki's ring if neg for EOE, since he has been having ongoing symptoms of dysphagia for the past 2 to 3 years to solids especially to rice
Will also add Carafate
Can DC antibiotics
Subjective
Subjective
Date of Service: September 06, 2024
Patient was extubated earlier today. He is doing well hemoglobin dropped since admission but he is stable with no further bleeding since after the endoscopy. Noted results of CT chest no extra esophageal air or fluid noted. He denies any chest
pain or abdominal pain
Objective
Data Reviewed
Laboratory Data:
Laboratory Results
09/06/24 04:39
09/06/24 03:51
Laboratory Results
PT 14.4 Sec (11.4-14.6) 09/05/24 00:53
INR 1.09 09/05/24 00:53
APTT 27.2 Sec (23.4-35.0) 09/05/24 00:53
Phosphorus 2.7 mg/dl (2.5-4.5) 09/05/24 05:43
Magnesium 2.0 mg/dl (1.6-2.3) 09/06/24 03:51
Total Bilirubin 1.7 mg/dl (0.2-1.3) H 09/05/24 00:53
AST 39 U/L (17-59) 09/05/24 00:53
ALT 45 U/L (0-50) 09/05/24 00:53
Alkaline Phosphatase 55 U/L (38-126) 09/05/24 00:53
09/05/24 EGD
Impression: - Large linear 6 cm mucosal tear bleeding and with
large adherent clot which was removed and large VV
seen in the mid to distal esophagus from 34 to 40 cm
but not extending to the GEJ. Injected. Treated with
bipolar cautery. hemostatic spray applied. No bleeding
at end of procedure.
- Low-grade of narrowing Schatzki ring.
- Small hiatal hernia.
- Red blood with clots in the gastric fundus.
- Normal examined duodenum.
- No specimens collected.
09/05/24 CT Chest With Iv Contrast
IMPRESSION:
Endotracheal tube with tip in trachea above the nellie.
Virtually completely empty, unopacified esophagus containing a few scattered bubbles of air. No findings to suggest pneumothorax, pneumomediastinum, mediastinal fluid or pericardial effusion.
Bilateral lower lobe consolidations, left greater than right compatible with atelectasis and/or pneumonia. Additional approximate 1 cm right lower lobe opacity most likely inflammatory/infectious.
Vital Signs and I&O:
Vital Signs
Temp Pulse Resp BP Pulse Ox
97.5 F 55 14 115/66 99
09/06/24 07:28 09/06/24 07:35 09/06/24 07:35 09/06/24 05:00 09/06/24 07:36
I&O
09/05/24 09/06/24 09/07/24
06:59 06:59 06:59
Intake Total 4091.0 / 4091.0
Output Total 1400 / 1400
Balance 2691.0 / 2691.0
Physical Exam
Physical Exam
Cardiology: Normal Sinus Rhythm
Pulmonary: Clear
GI: Soft, Non Distended, Non Tender and Normal Bowel Sounds
--- NOTE | 2024-09-06 09:50 | W.PN.HOSP.TC ---
Today's Communication/Plan
-
Clear liquid diet
Follow hemoglobin
Cut back on IV fluids
Transfer out of ICU when okay with GI
Assessment / Plan
Assessment / Plan
59-year-old male with upper GI bleed-vomiting blood. He ate rice and protein shake he felt it got stuck if you episodes of retching. Later on felt lightheaded and diaphoretic and had 3 episodes of hematemesis. Patient went for endoscopy where he
was found to have a 6 cm mucosal tear and bleeding. He was treated with bipolar cautery hemostatic spray. Patient was intubated for airway protection
EKG-sinus bradycardia with first degree block left axis deviation, incomplete right bundle branch block
Seen and evaluated the patient in the ICU
Extubated.
Hoarseness of voice
Cardiovascular system S1-S2 appreciated
Chest anteriorly clear to auscultation
Abdomen soft and nontender bowel sounds appreciated
No pedal edema
# Hematemesis -upper GI bleed
Probably exacerbated by aspirin (Takes 162 mg a day)
Dysphagia for the past few months
EGD 09/06/2023-large linear sick centimeter mucosal tear bleeding and with a large adherent clot which was removed. This was injected and treated with bipolar cautery and hemostatic spray. Also had hiatal hernia and low-grade narrowing of the
Schatzki's ring. Blood clots in the gastric fundus.
Patient was intubated for airway protection and to avoid nausea and retching to help heal the esophageal tear. No concern for aspiration per discussion with anesthesia.
Extubated 09/06/24
Continue PPI drip. Carafate started
Clear liquid diet
Follow hemoglobin
GI consulted and following as above
# Acute blood loss anemia due to UGIB
# Intubated for airway protection-on 09/05/2024 and extubated on 09/06/2024
# Aspiration pneumonia-bilateral lower lobe consolidations left greater than right-continue antibiotics
# ASCVD diagnosed by cardiac CT. No history of WI. Hold aspirin and statin
# Hyperlipidemia-hold statin as n.p.o.
# History of DVT and PE-or postsurgical. Was on Xarelto in the past
# Diverticulosis
# DVT prophylaxis-SCDs now and start Lovenox prophylaxis as soon as possible and cleared by GI
# Full code
Discussed with ICU team
Part of this note was created using voice recognition system. Occasional wrong word or��sound alike� substitutions may have inadvertently occurred due to the inherent limitations of voice recognition software. If noted kindly bring it to my
attention for correction.
Anticipated Discharge: 24 - 48 hours
Subjective/Interval History
-
Date of Service: September 06, 2024
Objective Data
-
Labs:
Laboratory Results
09/05/24 09/06/24 09/06/24
23:22 03:45 03:51
WBC Cancelled
Hgb Cancelled Cancelled
Hct Cancelled Cancelled
Plt Count Cancelled
HCO3 26.2
Sodium 138
Potassium 4.4
Chloride 110 H
Carbon Dioxide 24
BUN 20
Creatinine 1.0
Glucose 121 H
Calcium 8.4
09/06/24
04:39
WBC 11.7 H
Hgb 10.5 L
Hct 29.1 L
Plt Count 126 L D
HCO3
Sodium
Potassium
Chloride
Carbon Dioxide
BUN
Creatinine
Glucose
Calcium
Vital Signs:
Vital Signs
Temp Pulse Resp BP Pulse Ox
97.5 F 55 14 115/66 99
09/06/24 07:28 09/06/24 07:35 09/06/24 07:35 09/06/24 05:00 09/06/24 07:36
I&O
09/05/24 09/06/24 09/07/24
06:59 06:59 06:59
Intake Total 4091.0 / 4091.0
Output Total 1400 / 1400
Balance 2691.0 / 2691.0
[2024-09-06] MEDS: CARAFATE SUSPENSION 1 GM PO ×3 (10:30→22:49)
[2024-09-06 10:32] LABS: Iron 67 ug/dl (49-181)
[2024-09-06 10:42] LABS: Percent Saturation 26 % (20-50); Total Iron Binding Capacity 255 ug/dl (261-462)
--- NOTE | 2024-09-06 12:20 | W.PN.INTV ---
Today's Communication / Plan
Recommendations
- Patient successfully extubated
- Continue antibiotics for 5 days total for aspiration pneumonia
- Telemetry, TSH, EKG, cardiology consult for intermittent second-degree heart block
- Subcu heparin for DVT prophylaxis to be started on 09/07 if stable
- Investigator Fraud service will sign off once patient is transferred out of ICU
Assessment
-
Patient is currently intubated and sedated, unable to provide any history. Information mostly obtained from review of records and discussion with other healthcare providers. Reportedly patient is a 59-year-old gentleman with history of DVT and PE
who presents through the emergency room with hematemesis. Patient reportedly had some rice and protein shake and felt like as if it was stuck and he subsequently had cough and threw up some of the contents. He had additional episodes of retching
and emesis following that. A while later patient felt lightheaded as well as diaphoretic. He subsequently had a large amount of bright red blood x 2 episode. He had another episode once back at home and then decided to present to the emergency
room. In view of multiple episodes, he was admitted to the hospital and had an upper endoscopy performed today. Post endoscopy he arrives to ICU intubated, mechanically ventilated and sedated. Investigator Fraud consultation was requested for further
input.
#1. Upper GI bleed with esophageal tear.
- Suspect related to forceful retching, vomiting after episode of flood sticking in esophagus/chocking
- s/p EGD, large tear noted, s.p bipolar cautery
- CT Chest with contrast negative for any mediastinal pathology
- Clear liquids
- IV PPI infusion
- GI Service on case. Will need follow-up EGD in view of ongoing dysphagia.
#2. Acute respiratory failure, intubated for airway protection with GI bleed and esophageal tear
- ABG 7.4, 43, 127. Had been on volume assist-control 500/16/40%/5
- Patient was placed on SAT SBT, did well, successfully extubated to nasal cannula 09/06.
#3. h/o DVT-PE.
- Reportedly mostly after surgeries
#4. Bilateral Aspiration.
- Will continue antibiotics for a total of 5 days
#5. Brief heart block. Appears to be type II 2nd degree, took place when patient was sleeping in chair, otherwise asymptomatic.
- Baseline admission EKG has first degree HB with RBBB
- Not on any arin blocking agent, check TSH, cardiology consult, continue telemetry monitoring, will repeat EKG
SCDs for DVT prophylaxis. Will start s.c Heparin on 09/07 if stable.
Critical Care time 45 mins -- The patient is admitted for acute critical illness for the treatment of vital organ failure and/or prevention of further life-threatening conditions. Total care includes time spent in review of history, physical exam,
medications, hemodynamic/ventilator parameters, laboratory data, imaging and discussion with house staff, pharmacy, respiratory therapy, structural steel worker apprentice, and nursing.
Data:
CXR 09/2024: Interval insertion of endotracheal tube, with tip 5 cm above the nellie.
Mild parenchymal opacity within the medial left lower lung, which is likely atelectasis.
EGD 09/05/2024: Large linear 6 cm mucosal tear bleeding with large adherent clot which was removed. Treated with bipolar cautery. Small hiatal hernia.
Subjective Dataa
Subjective Data
Date of Service:
Date of Service: September 06, 2024
Subjective:
Patient evaluated prior to extubation and then again examined after extubation.
Review of Systems
Genitourinary: Other (All 14 systems reviewed and negative except as stated above in the history of present illness.)
Objective Data
Data Reviewed
Vital Signs / I&O / Oxygen:
Vital Signs
Temp Pulse Resp BP Pulse Ox
97.5 F 55 14 115/66 99
09/06/24 07:28 09/06/24 07:35 09/06/24 07:35 09/06/24 05:00 09/06/24 07:36
Intake and Output
06/07/2709/06/24 09/07/24
06:59 06:59 06:59
Intake Total 4091.0 / 4091.0
Output Total 1400 / 1400
Balance 2691.0 / 2691.0
SaO2 [A/C] 99
SaO2 99
Physical Exam
General: Comfortable
HEENT: Normocephalic
Cardiovascular: S1-S2
Respiratory: Clear and Non-Labored Respirations
GI: Soft and Non Distended
Neurology: Awake and Alert
Skin: Warm
Labs/Micro/Reports
Lab Data
09/06/24 04:39
09/06/24 03:51
Laboratory Results
09/06/24
03:45
pH 7.47 H
pCO2 36
pO2 117 H
HCO3 26.2
O2 Delivery Level
[2024-09-06 12:50] LABS: Vitamin B12 852 pg/ml (239-931)
--- NOTE | 2024-09-06 13:20 | CON.CAR ---
Addendum entered and electronically signed by Duy Aaron MD 09/06/24 18:27:
I saw and examined the patient.
The [employer] Developer's note was reviewed and I agree with the note.
Comment:
GEN: No distress, awake, Ox3
HEENT: supple, anicteric, mmm
LUNGS: CTA, no wheezes/rales
CV: Reg, S1/S2, 1/6 syst LSB, no gallop
ABD: soft, BS+, NT/ND
EXT: No edema
NEURO: Gross non-focal
SKIN: No rash
PLan:
59-year-old male with past medical history of coronary artery disease, DVT, hyperlipidemia presents with GI bleed and a large esophageal tear. He was at the movies and he started vomiting up blood. He was briefly intubated now extubated. We are
asked to see him regarding sinus arrhythmia, second-degree AV block.
I reviewed his previous cardiac catheterization which revealed 100% circumflex occlusion with 50% LAD and 60% RCA. LVEF has overall been preserved in the past.
He does not take beta-christian therapy. Hold ASA with GI bleed.
Telemetry with paroxysmal second degree AV block and First degree AV block.
Will check Echo. At this point there is no indication for cardiac treatment for his AV block. He should continue conservative therapy for his coronary artery disease.
Continue treatment for esophageal tear and follow hemoglobin. Hemoglobin currently stable at 10.5.
Addendum entered and electronically signed by Dee Meyer PA-C 09/06/24 16:17:
Records obtained and reviewed from primary contact center professional office. He had stress echocardiogram 05/09/2023 which was negative for evidence of ischemia or scar at 102% of max predicted heart rate with no chest discomfort reported. PVCs and Wenckebach
were noted during that test. He had CT coronary angiogram 10/2022 which showed triple-vessel coronary artery disease with near total occlusion or occlusion of proximal circumflex artery and 50% stenosis of mid LAD and 60% mid RCA stenosis followed
by cardiac cath which confirmed 100% circumflex occlusion with right to left collaterals, 50% LAD IFR negative, and 60% RCA IFR negative. He states he is scheduled for repeat CT coronary angiogram to assess for progression but has not completed
this yet. Most recent blood work from 10/2023 with LDL 49.
Original Note:
Consultation
Consultation Request
Date/Time Consultation Performed: 09/06/24
Requesting Provider: Dr. De La Cruz
Performing Provider: Dee Meyer PA-C for Dr. Aaron
Reason for Consultation: bradycardia
Medical History
-
Chief Complaint: hematemesis
History of Present Illness:
Patient is a 59-year-old male with past medical history of provoked DVT in the setting of knee surgery, then was off of anticoagulation for appendectomy and developed significant bilateral PEs. He was placed on Xarelto. He states he then did not
like the way he felt on Xarelto and after a time asked to switch to aspirin and fish oil and his manager account management was okay with this. He reports he has been taking 162 mg of aspirin daily along with fish oil for some time now. Patient is avid biker.
He reports approximately 1 year ago he was planning to participate in a 12-day biking challenge and he was asked to obtain cardiac clearance for this. This ended up resulting in a cardiac catheterization which showed 100% occlusion of circ with
collaterals and 50-60% blockages in several other vessels. He was not felt to have any contraindications to participating or continuing exercising. Tuesday evening he was at a movie with his daughter and was eating salmon and rice. He reports he had
a 'big glob' of rice get stuck in his throat. He reports he began vomiting up blood and they left the movie. He asked his to take him to the ER when they arrived home. He continued to have hematemesis several additional times. Hgb stable.
Underwent urgent EGD which showed large esophageal tear with clot in mid to distal esophagus treated with cautery. He was extubated this AM. Cardiology consulted as patient noted to have occasional dropped beats on tele. Patient asymptomatic. Denies
history of rhythm issues however does report known resting bradycardia.
PMH:
CAD with known occluded circ with collaterals and mod residual CAD, details unknown
History of provoked DVT/PE
HLD
Past Medical History
Past Medical History: Other (in HPI)
Social History
Tobacco: Non-Smoker
Alcohol: None
Personal:
Living: With Family
Employment: Employed
Family History
Family History: Early CAD (brother)
Allergies / Home Medications
Allergy/AdvReac Type Severity Reaction Status Date / Time
No Known Allergies Allergy Verified 09/04/24 23:59
�Medication �Instructions �Recorded �Confirmed �Type
aspirin 81 mg chewable tablet 81 mg PO DAILY Heart 01/21/21 09/05/24 History
Disease/Condition
atorvastatin 40 mg tablet 40 mg PO HS High Cholesterol 09/05/24 09/05/24 History
coenzyme Q10 100 mg capsule 100 mg PO DAILY Supplement 09/05/24 09/05/24 History
(CoQ-10)
omega 1-rze-yxc-fish oil 1,000 mg 1 cap PO BID Supplement 09/05/24 09/05/24 History
(120 mg-180 mg) capsule (Fish Oil)
psyllium husk 3.4 gram/5.4 gram 1 tbsp PO DAILY Constipation 09/05/24 09/05/24 History
oral powder (Metamucil)
Review of Systems
-
History Source: Patient and Family
All other systems: Negative unless noted
Physical Exam
Vital Signs
Temp Pulse Resp BP Pulse Ox
98 F 55 14 115/66 99
09/06/24 11:40 09/06/24 07:35 09/06/24 07:35 09/06/24 05:00 09/06/24 07:36
Lab Results
09/06/24 04:39
09/06/24 03:51
Physical Exam
General: No Apparent Distress, Comfortable and Other (sitting in chair)
HEENT: Normocephalic, Anicteric and Moist Mucous Membranes
Respiratory: Clear and Non Labored Respirations
Cardiac: S1/S2 and Regular Rhythm
GI: Soft, Non Tender, Non Distended and Normal Bowel Sounds
Musculoskeletal: No Clubbing, No Cyanosis and No Edema
Skin: Warm and Dry
Neuro: AO x 3
Impression / Plan
-
Primary Clinical Engineering Manager: Dr. Pires of [facility]
Assessment:
Presentation with hematemesis
Large esophageal tear s/p cautery 09/05/24
Acute anemia secondary to above
B/L aspiration PNA by CT
Intubated 09/05, extubated 09/06
Intermittent Wenckebach vs Mobitz 2 type 2 av block, asymptomatic
CAD with known occluded circ with collaterals and mod residual CAD, details unknown
History of provoked DVT/PE
HLD
Plan:
- Patient presented with hematemesis and was found to have a large esophageal tear by urgent endoscopy status post cautery on 09/05/2024. He is also noted to have acute anemia in the setting of this as well as bilateral aspiration pneumonia. He was
intubated and has subsequently been extubated earlier this morning. Cardiology consulted as noted on telemetry to have occasional episodes of what appears to be Wenke Bach versus a Mobitz 2 type II AV block. Patient is asymptomatic
- Outpatient aspirin and fish oil remain on hold
- Continue to avoid AV arin blocking agents
- Given his cardiac history as above, have requested records from primary contact center professional for our review
- Check TSH
- Suspect vagally mediated in setting of acute GI bleed with esophageal tear, and recent intubation/extubation
- Follow on telemetry
- No present indication for pacemaker
- Discussed with nursing
-discussed with patient and family at bedside
Data Reviewed
-
EKG: Tracing Personally Visualized and interpreted
Labs: Labs Reviewed by me
Old Records: Requested
[2024-09-06 13:23] LABS: TSH 0.46 uIU/ml (0.47-4.68)
--- NOTE | 2024-09-06 14:06 | PTCARENOTE ---
pt oob in chair and noted to have a brief rhythm of type II heart block at 12:15 , without any symptoms, Dr Coello notified and rhythm strip placed in chart , EKG done , cardiology was consulted , TSH level 0.46 . he has been oob for 4 hours and
now back to bed
[2024-09-06] MEDS: MELATONIN 5 MG PO (22:49)
[2024-09-07] VITALS (7 sets, daily range): BP systolic 113–151; BP diastolic 67–83
[2024-09-07] MEDS: PROTONIX 100 IV (01:43)
[2024-09-07] MEDS: UNASYN IV ×4 (03:21→21:50)
[2024-09-07 07:48] LABS: Hematocrit 26.6 % (39.0-52.0); Hemoglobin 9.6 g/dL (13.0-18.0); Mean Corp Hgb Conc. 36.1 g/dL (33.0-37.0); Mean Corpuscular Hgb 32.5 pg (27.0-31.0); Mean Corpuscular Volume 90.2 fL (80.0-94.0); Mean Platelet Volume 9.9 fL (7.4-10.4); Platelet Count 119 10^3/uL (130-400); Red Blood Cell Count 2.95 10^6/uL (4.70-6.10); Red Cell Dist. Width 11.4 % (11.5-14.5); White Blood Cell Count 7.8 10^3/uL (4.8-10.8)
[2024-09-07] MEDS: CARAFATE SUSPENSION 1 GM PO ×4 (08:14→21:50)
[2024-09-07 08:17] LABS: Blood Urea Nitrogen 13 mg/dl (9-20); Calcium 8.3 mg/dl (8.4-10.2); Carbon Dioxide 26 mmol/L (22-30); Chloride 112 mmol/L (98-107); Estimated Creatinine Clearance 75 ml/min; Glucose 97 mg/dl (70-99); Magnesium 1.7 mg/dl (1.6-2.3); Potassium 3.8 mmol/L (3.5-5.1); Sodium 140 mmol/L (135-145); eGFR > 60.00
[2024-09-07] MEDS: LR IV (09:43)
--- NOTE | 2024-09-07 12:13 | W.PN.GI.CBS2 ---
Today's Communication / Plan
-
advance diet
Assessment / Plan
-
Pt is a 59yo with hx ASCVD with medical management, prior DVT/PE on ASA not on anticoagulation, appe, cortney, knee surgery with onset of dysphagia after eating rice with retching then hematemesis and vomited about 200ml of suzanne blood in ER. Pt
states hx dysphagia intermittently last few months. Labs on admission with WBC 14.8, hbg 13.9, Platelets 179 with normal INR. No hx ETOH use.
-dysphagia last few months
-hematemesis after retching
-mild leukocytosis on admission
-ASCVD on daily ASA
other med problems:
-diverticulosis
-DVT/PE
-appe
-cortney
knee surgery
Status post EGD 09/05/2024 which showed a large esophageal mucosal tear with active bleeding and a large adherent clot which was removed and status post injection of epi bipolar cautery and Hemospray and hemostasis was achieved
Plan:
advance to purees
switch to PPI bid
carafate
outpatient egd
follow hgb
Subjective
Subjective
Date of Service: September 07, 2024
Pt with esophageal tear/bleed. Completely asymptomatic, tolerated clears, normal bm.
Objective
Data Reviewed
Laboratory Data:
Laboratory Results
09/07/24 06:56
09/07/24 06:56
Laboratory Results
PT 14.4 Sec (11.4-14.6) 09/05/24 00:53
INR 1.09 09/05/24 00:53
APTT 27.2 Sec (23.4-35.0) 09/05/24 00:53
Phosphorus 2.7 mg/dl (2.5-4.5) 09/05/24 05:43
Magnesium 1.7 mg/dl (1.6-2.3) 09/07/24 06:56
Total Bilirubin 1.7 mg/dl (0.2-1.3) H 09/05/24 00:53
AST 39 U/L (17-59) 09/05/24 00:53
ALT 45 U/L (0-50) 09/05/24 00:53
Alkaline Phosphatase 55 U/L (38-126) 09/05/24 00:53
Vital Signs and I&O:
Vital Signs
Temp Pulse Resp BP Pulse Ox
98.2 F 65 16 121/68 97
09/07/24 11:21 09/07/24 11:21 09/07/24 11:21 09/07/24 11:21 09/07/24 11:21
I&O
09/06/24 09/07/24 09/08/24
06:59 06:59 06:59
Intake Total 4091.0 / 4267.8 2086.8 / 2086.8
Output Total 1400 / 1400 1000 / 1000
Balance 2691.0 / 2867.8 1086.8 / 1086.8
Physical Exam
Physical Exam
GI: Soft, Non Distended and Non Tender
--- NOTE | 2024-09-07 12:39 | W.PN.CARDCBS ---
Today's Communication / Plan
-
Stable cardiology status for discharge
Sign off
Impression / Plan
-
Primary Machine Design Engineer: Dr. Pires of [facility]
Assessment:
Presentation with hematemesis
Large esophageal tear s/p cautery 09/05/24
Acute anemia secondary to above
B/L aspiration PNA by CT
Intubated 09/05, extubated 09/06
Intermittent Wenckebach vs Mobitz 2 type 2 av block, asymptomatic
CAD with known occluded circ with collaterals and mod residual CAD, details unknown
History of provoked DVT/PE
HLD
Plan:
Telemetry with no significant AV block and remains in sinus rhythm
Stable cardiology status for discharge
Will sign off, call with questions
Follow-up with [place] [facility]
PREADMIT DATA
- Patient presented with hematemesis and was found to have a large esophageal tear by urgent endoscopy status post cautery on 09/05/2024. He is also noted to have acute anemia in the setting of this as well as bilateral aspiration pneumonia. He was
intubated and has subsequently been extubated earlier this morning. Cardiology consulted as noted on telemetry to have occasional episodes of what appears to be Wenke Bach versus a Mobitz 2 type II AV block. Patient is asymptomatic
Progress Note - Machine Design Engineer
Subjective
Date of Service: September 07, 2024
No complaints
Objective
Labs:
09/07/24 06:56
09/07/24 06:56
Labs
Hgb 9.6 g/dL (13.0-18.0) L 09/07/24 06:56
Hct 26.6 % (39.0-52.0) L 09/07/24 06:56
Plt Count 119 10^3/uL (130-400) L 09/07/24 06:56
PT 14.4 Sec (11.4-14.6) 09/05/24 00:53
INR 1.09 09/05/24 00:53
APTT 27.2 Sec (23.4-35.0) 09/05/24 00:53
Sodium 140 mmol/L (135-145) 09/07/24 06:56
Potassium 3.8 mmol/L (3.5-5.1) 09/07/24 06:56
BUN 13 mg/dl (9-20) 09/07/24 06:56
Creatinine 1.1 mg/dL (0.7-1.3) 09/07/24 06:56
Glucose 97 mg/dl (70-99) 09/07/24 06:56
Vital Signs and I&O:
Vital Signs
Temp Pulse Resp BP Pulse Ox
98.2 F 65 16 121/68 97
09/07/24 11:21 09/07/24 11:21 09/07/24 11:21 09/07/24 11:21 09/07/24 11:21
Vital Signs
Temp Pulse Resp BP Pulse Ox
98.2 F 65 16 121/68 97
09/07/24 11:21 09/07/24 11:21 09/07/24 11:21 09/07/24 11:21 09/07/24 11:21
Intake & Output
09/05/24 09/06/24 09/07/24 09/08/24
06:59 06:59 06:59 06:59
Intake Total 4091.0 / 4267.8 2086.8 / 2086.8
Output Total 1400 / 1400 1000 / 1000
Balance 2691.0 / 2867.8 1086.8 / 1086.8
Physical Exam
Physical Exam
General: Well developed, well nourished in NAD.
Neck: Supple, no JVD, HJR, carotids +2 B/L, no bruits bilaterally.
Heart: Non displaced PMI, RRR, no murmurs, No S3, S4, no rubs.
Lungs: Clear to auscultation bilaterally, no wheeze, rhonchi, rubs bilaterally,
normal expiratory phase.
Extremities: No clubbing, cyanosis or edema bilaterally.
Neuro: Grossly nonfocal, awake, alert and oriented x3.
[2024-09-07] MEDS: NSS (PRESERVATIVE FREE) 10 ML IV ×2 (13:16→19:43)
[2024-09-07] MEDS: PROTONIX IV 40 MG IV ×2 (13:17→19:43)
--- NOTE | 2024-09-07 14:02 | W.PN.HOSP.TC ---
Today's Communication/Plan
-
Full Liquids
Watch Hb
Assessment / Plan
Assessment / Plan
59-year-old male with upper GI bleed-vomiting blood. He ate rice and protein shake he felt it got stuck if you episodes of retching. Later on felt lightheaded and diaphoretic and had 3 episodes of hematemesis. Patient went for endoscopy where he
was found to have a 6 cm mucosal tear and bleeding. He was treated with bipolar cautery hemostatic spray. Patient was intubated for airway protection
EKG-sinus bradycardia with first degree block left axis deviation, incomplete right bundle branch block
Cardiovascular system S1-S2 appreciated
Chest anteriorly clear to auscultation
Abdomen soft and nontender bowel sounds appreciated
No pedal edema
# Hematemesis -upper GI bleed
Probably exacerbated by aspirin (Takes 162 mg a day)
Dysphagia for the past few months
EGD 09/06/2023-large linear sick centimeter mucosal tear bleeding and with a large adherent clot which was removed. This was injected and treated with bipolar cautery and hemostatic spray. Also had hiatal hernia and low-grade narrowing of the
Schatzki's ring. Blood clots in the gastric fundus.
Patient was intubated for airway protection and to avoid nausea and retching to help heal the esophageal tear. No concern for aspiration per discussion with anesthesia.
Extubated 09/06/24
Continue PPI drip. Carafate started
Full liquid diet
Follow hemoglobin
GI consulted and following as above
# Acute blood loss anemia due to UGIB
# Intubated for airway protection-on 09/05/2024 and extubated on 09/06/2024
# Aspiration pneumonia-bilateral lower lobe consolidations left greater than right-continue antibiotics
# ASCVD diagnosed by cardiac CT. No history of AK. Hold aspirin and give statin
# Hyperlipidemia-Restart statin
# History of DVT and PE-or postsurgical. Was on Xarelto in the past
# Diverticulosis
# DVT prophylaxis-SCDs now and start Lovenox prophylaxis as soon as possible and cleared by GI
# Full code
D/W GI
Part of this note was created using voice recognition system. Occasional wrong word or��sound alike� substitutions may have inadvertently occurred due to the inherent limitations of voice recognition software. If noted kindly bring it to my
attention for correction.
Anticipated Discharge: Within 24 hours
Subjective/Interval History
-
Date of Service: September 07, 2024
Objective Data
-
Labs:
Laboratory Results
09/07/24
06:56
WBC 7.8
Hgb 9.6 L
Hct 26.6 L
Plt Count 119 L
Sodium 140
Potassium 3.8
Chloride 112 H
Carbon Dioxide 26
BUN 13
Creatinine 1.1
Glucose 97
Calcium 8.3 L
Vital Signs:
Vital Signs
Temp Pulse Resp BP Pulse Ox
98.2 F 65 16 121/68 97
09/07/24 11:21 09/07/24 11:21 09/07/24 11:21 09/07/24 11:21 09/07/24 11:21
I&O
09/06/24 09/07/24 09/08/24
06:59 06:59 06:59
Intake Total 4091.0 / 4267.8 2086.8 / 2086.8
Output Total 1400 / 1400 1000 / 1000
Balance 2691.0 / 2867.8 1086.8 / 1086.8
--- NOTE | 2024-09-07 15:19 | CM ---
Chart reviewed and plan is to home with spouse when stable.
Plan; Home when stable.
[2024-09-07] MEDS: LIPITOR 40 MG PO (17:23)
[2024-09-08 03:17] VITALS: BP 140/84
[2024-09-08] MEDS: UNASYN IV ×2 (04:31→09:22)
[2024-09-08 05:33] VITALS: BMI 29.6
[2024-09-08 07:40] LABS: Hematocrit 28.3 % (39.0-52.0); Hemoglobin 10.3 g/dL (13.0-18.0); Mean Corp Hgb Conc. 36.4 g/dL (33.0-37.0); Mean Corpuscular Hgb 32.1 pg (27.0-31.0); Mean Corpuscular Volume 88.2 fL (80.0-94.0); Mean Platelet Volume 10.1 fL (7.4-10.4); Platelet Count 124 10^3/uL (130-400); Red Blood Cell Count 3.21 10^6/uL (4.70-6.10); Red Cell Dist. Width 11.2 % (11.5-14.5); White Blood Cell Count 6.7 10^3/uL (4.8-10.8)
[2024-09-08 07:50] VITALS: BP 143/88
[2024-09-08 08:10] LABS: Blood Urea Nitrogen 13 mg/dl (9-20); Calcium 8.7 mg/dl (8.4-10.2); Carbon Dioxide 24 mmol/L (22-30); Chloride 110 mmol/L (98-107); Estimated Creatinine Clearance 83 ml/min; Glucose 96 mg/dl (70-99); Magnesium 1.8 mg/dl (1.6-2.3); Potassium 4.2 mmol/L (3.5-5.1); Sodium 139 mmol/L (135-145); eGFR > 60.00
[2024-09-08 08:39] LABS: TSH Reflex To Free T4 2.61 uIU/ml (0.47-4.68)
[2024-09-08] MEDS: PROTONIX IV 40 MG IV (09:21)
[2024-09-08] MEDS: NSS (PRESERVATIVE FREE) 10 ML IV (09:21)
[2024-09-08] MEDS: CARAFATE SUSPENSION 1 GM PO ×2 (09:21→12:53)
[2024-09-08 11:18] VITALS: BP 139/87
--- NOTE | 2024-09-08 12:26 | W.PN.HOSP.TC ---
Today's Communication/Plan
-
Discharge
Assessment / Plan
Assessment / Plan
59-year-old male with upper GI bleed-vomiting blood. He ate rice and protein shake he felt it got stuck if you episodes of retching. Later on felt lightheaded and diaphoretic and had 3 episodes of hematemesis. Patient went for endoscopy where he
was found to have a 6 cm mucosal tear and bleeding. He was treated with bipolar cautery hemostatic spray. Patient was intubated for airway protection
EKG-sinus bradycardia with first degree block left axis deviation, incomplete right bundle branch block
Cardiovascular system S1-S2 appreciated
Chest anteriorly clear to auscultation
Abdomen soft and nontender bowel sounds appreciated
No pedal edema
# Hematemesis -upper GI bleed
Probably exacerbated by aspirin (Takes 162 mg a day)
Dysphagia for the past few months
EGD 09/06/2023-large linear sick centimeter mucosal tear bleeding and with a large adherent clot which was removed. This was injected and treated with bipolar cautery and hemostatic spray. Also had hiatal hernia and low-grade narrowing of the
Schatzki's ring. Blood clots in the gastric fundus.
Patient was intubated for airway protection and to avoid nausea and retching to help heal the esophageal tear. No concern for aspiration per discussion with anesthesia.
Extubated 09/06/24
Continue PPI
Soft foods for 2 weeks. Patient aware
Advised not to lift any weights-he is not planning 20 minutes.
Follow hemoglobin
GI consulted and following as above
# Acute blood loss anemia due to UGIB
# Intubated for airway protection-on 09/05/2024 and extubated on 09/06/2024
# Aspiration pneumonia-bilateral lower lobe consolidations left greater than right-continue antibiotics
# ASCVD diagnosed by cardiac CT. No history of NV. Hold aspirin and give statin
# Hyperlipidemia-Restart statin
# History of DVT and PE-or postsurgical. Was on Xarelto in the past
# Diverticulosis
# DVT prophylaxis-SCDs now and start Lovenox prophylaxis as soon as possible and cleared by GI
# Full code
D/W GI today. Okay with discharge on soft pur�ed and soft diet.
Part of this note was created using voice recognition system. Occasional wrong word or��sound alike� substitutions may have inadvertently occurred due to the inherent limitations of voice recognition software. If noted kindly bring it to my
attention for correction.
OK for ASA after 1 week per GI
Carafate for 2 month
D/W RN
D/W at bed side
Discharge time more than 30 min
Anticipated Discharge: Today
Subjective/Interval History
-
Date of Service: September 08, 2024
Objective Data
-
Labs:
Laboratory Results
09/08/24
06:17
WBC 6.7
Hgb 10.3 L
Hct 28.3 L
Plt Count 124 L
Sodium 139
Potassium 4.2
Chloride 110 H
Carbon Dioxide 24
BUN 13
Creatinine 1.0
Glucose 96
Calcium 8.7
Vital Signs:
Vital Signs
Temp Pulse Resp BP Pulse Ox
98.0 F 63 16 139/87 98
09/08/24 11:18 09/08/24 11:18 09/08/24 11:18 09/08/24 11:18 09/08/24 11:18
I&O
09/07/24 09/08/24 09/09/24
06:59 06:59 06:59
Intake Total 2086.8 / 2086.8 1440 / 1440
Output Total 1000 / 1000
Balance 1086.8 / 1086.8 1440 / 1440
--- NOTE | 2024-09-08 12:43 | W.DS.TRANS ---
Addendum entered and electronically signed by Breana De La Cruz MD 09/08/24 15:06:
Dictation- [id number]
Original Note:
DC Summary - Home Economics Expert
-
Discharge Instructions:
Discharge Diagnosis/Procedures Upper GI bleed
Anemia secondary to blood loss
Intubated for airway protection
Aspiration pneumonia
ASCVD
Hyperlipidemia
History of DVT and PE
Additional Diets Soft food Only 2 to 3 weeks
Activity As tolerated
Additional Activity No weight lifting
Driving Restrictions As prior to admission
Blood Work Follow jup with PCP for blood work- CBC in 1-2
weeks
Others Tests repeat endoscopy needed
Instructions:
Stand-Alone Forms:
Changes to Home Medications: Yes
Discharge Medications:
DC Medications w/original date entered in [employer]
aspirin 81 mg chewable tablet 81 mg PO DAILY Heart Disease/Condition 01/21/21
Held on 09/08/24. Instructions: Resume on 09/15/24.
atorvastatin 40 mg tablet 40 mg PO HS High Cholesterol 09/05/24
coenzyme Q10 100 mg capsule (CoQ-10) 100 mg PO DAILY Supplement 09/05/24
omega 8-vzu-rqr-fish oil 1,000 mg (120 mg-180 mg) capsule (Fish Oil) 1 cap PO BID Supplement 09/05/24
amoxicillin 250 mg-potassium clavulanate 62.5 mg/5 mL oral suspension (Augmentin) 10 ml PO TID Lung/breathing issues #150 mL 09/08/24
pantoprazole 40 mg tablet,delayed release (Protonix) 40 mg PO DAILY Gastrointestinal issue #60 tabs 09/08/24
polyethylene glycol 3350 17 gram oral powder packet 17 g PO BID Constipation #100 ea 09/08/24
sucralfate 100 mg/mL oral suspension 1 g (10 mL) PO ACHS Gastrointestinal issue #500 mL 09/08/24
Home Medication Changes
new
amoxicillin 250 mg-potassium clavulanate 62.5 mg/5 mL oral suspension (Augmentin) 10 ml PO TID Lung/breathing issues #150 mL 09/08/24
pantoprazole 40 mg tablet,delayed release (Protonix) 40 mg PO DAILY Gastrointestinal issue #60 tabs 09/08/24
polyethylene glycol 3350 17 gram oral powder packet 17 g PO BID Constipation #100 ea 09/08/24
sucralfate 100 mg/mL oral suspension 1 g (10 mL) PO ACHS Gastrointestinal issue #500 mL 09/08/24
Pending Results: No
== END 2024-09-08 13:00 | disposition home or self-care (01) | DRG 368 ==
LOC: 4 WEST ACU 05:10
PROVIDERS: Nurse Practitioner Family; ADMITTING PHYSICIAN Hospitalist; ATTENDING PHYSICIAN Hospitalist; CONSULT PHYSICIAN Internal Medicine; CONSULT PHYSICIAN Internal Medicine Cardiovascular Disease; EMERGENCY PHYSICIAN Student in an Organized Health Care Education/Training Program; FAMILY PHYSICIAN Internal Medicine; OTHER PHYSICIAN Internal Medicine Gastroenterology
PROC: 0D538ZZ Destruction of Lower Esophagus, Via Natural or Artificial Opening Endoscopic (ICD-10-PCS; 2024-09-05)
PROC: 3E0G8GC Introduction of Other Therapeutic Substance into Upper GI, Via Natural or Artificial Opening Endoscopic (ICD-10-PCS; 2024-09-05)
PROC: 0CHY7BZ Insertion of Airway into Mouth and Throat, Via Natural or Artificial Opening (ICD-10-PCS; 2024-09-05)
PROC: XW0G886 Introduction of Mineral-based Topical Hemostatic Agent into Upper GI, Via Natural or Artificial Opening Endoscopic, New Technology Group 6 (ICD-10-PCS; 2024-09-05)
PROC: 0D5 Gastrointestinal System, Destruction (ICD-10-PCS; 2024-09-05)
DX: K22.6 Gastro-esophageal laceration-hemorrhage syndrome (principal); J69.0 Pneumonitis due to inhalation of food and vomit; J96.00 Acute respiratory failure, unspecified whether with hypoxia or hypercapnia; D62 Acute posthemorrhagic anemia; K22.2 Esophageal obstruction; K44.9 Diaphragmatic hernia without obstruction or gangrene; R13.14 Dysphagia, pharyngoesophageal phase; Z86.718 Personal history of other venous thrombosis and embolism; E78.00 Pure hypercholesterolemia, unspecified; I25.10 Atherosclerotic heart disease of native coronary artery without angina pectoris; I44.1 Atrioventricular block, second degree; Z79.82 Long term (current) use of aspirin; Z82.49 Family history of ischemic heart disease and other diseases of the circulatory system; I25.82 Chronic total occlusion of coronary artery; K22.3 Perforation of esophagus; Z79.899 Other long term (current) drug therapy; Z86.711 Personal history of pulmonary embolism; Z87.19 Personal history of other diseases of the digestive system
CPT/HCPCS: 36600; 71045; 71046; 71260; 80048; 80053; 82607; 82728; 82805; 82962; 83540; 83550; 83735; 84100; 84443; 84478; 85014; 85018; 85025; 85027; 85610; 85730; 86850; 86900; 86901; 93005; 94002; 94003; 96365; 96366; 96375; 99291; Q9967

== ENCOUNTER 2025-01-24 06:25 | Day surgery (SDC) | payer OTHER, SELFPAY | END 2025-01-24 10:29 | disposition home or self-care (01) | LOC: GI 06:25 | PROVIDERS: ATTENDING PHYSICIAN Internal Medicine Gastroenterology | DX: Z12.11 Encounter for screening for malignant neoplasm of colon (principal); K57.30 Diverticulosis of large intestine without perforation or abscess without bleeding; D12.2 Benign neoplasm of ascending colon; D12.8 Benign neoplasm of rectum; R13.10 Dysphagia, unspecified; K22.2 Esophageal obstruction; K44.9 Diaphragmatic hernia without obstruction or gangrene; K22.89 Other specified disease of esophagus; K20.0 Eosinophilic esophagitis | CPT/HCPCS: 43249; 45385; 45380; 43239; 88305 ==